=== PATIENT | female | born 1960 | race Caucasian/White ===

== ENCOUNTER → 2016-08-09 | Outpatient (CLI) | payer OTHER, BC ==
[~2016-08-09] MED LIST: ACTOS15 MG PO; ALLEGRA ALLERG180 MG PO; ALTACE10 M1 PO; AMITRIPTYLINE H25 M2 PO; BACLOFEN 10MG T10 M1 PO; BACLOFEN 10MG T10 MG PO; BENADRYL25 MG PO; CARISOPRODOL 3350 MG PO; CARVEDILOL25 MG PO; CIPROFLOXACIN500 M1 PO; ERGOCALCIF50000 UNIT PO; ESTRACE1 MG PO; FLAGYL500 MG PO; FOLIC ACID 1 MG1 MG PO; FUROSEMIDE; HYDROCODON-ACE1 EAC8 PO; HYDROXYCHLOROQ200 M1 PO; KLOR-CON 10 ER10 MEQ PO; LANOXIN 0.250.25 M1 PO; LASIX 20 MG TAB20 MG PO; LEVOXYL75 MCG PO; LEXAPRO 10 MG T10 M2 PO; METHOTREXA250 MG/10 INJ; METHOTREXATE 22.5 MG PO; MINIPRIN81 MG PO; MOBIC15 MG PO; MUCINEX600 MG PO; NITROGLYCERIN0.4 MG SL; NITROQUICK0.4 MG SUBLING; PIOGLITAZONE15 MG PO; PREDNISONE 10 M10 MG PO; PRILOSEC40 MG PO; PROVENTIL; PROVENTIL HFA6.7 G1 INH; REGLAN 10 MG TA10 MG PO; SIMVASTATIN40 MG PO; SINGULAIR 10 MG10 M1 PO; SYNTHROID150 MCG PO; VISTARIL50 MG PO; VITAMIN D10000 UNIT PO; XANAX 0.5 MG0.5 MG PO
== END ==
LOC: RAD 11:38
DX: Z12.31 Encounter for screening mammogram for malignant neoplasm of breast (principal)